=== PATIENT | male | born 1945 ===

== ENCOUNTER 2018-12-22 16:04 | Inpatient (IN) | payer MEDICARE, BC ==
[~2018-12-22] VITALS: Ht 172.7 cm; Wt 131.0 kg
[2018-12-22 16:55] VITALS: BP 128/81
[2018-12-22] MEDS ORDERED: ENOX100S5 SQ (17:48)
[2018-12-22] MEDS ORDERED: ATOR20TA37 PO (17:48)
[2018-12-22] MEDS ORDERED: TAMS-11 PO (17:48)
[2018-12-22] MEDS ORDERED: FURO40SO5 IV (17:48)
[2018-12-22] MEDS ORDERED: ASPI81TA45 PO (17:48)
[2018-12-22] MEDS ORDERED: GLYB5TAB3 PO (17:48)
[2018-12-22] MEDS ORDERED: SPIR25TA PO (17:48)
[2018-12-22] MEDS ORDERED: LISI5TAB7 PO (17:48)
[2018-12-22] MEDS ORDERED: METF1000 PO (17:50)
[2018-12-22] MEDS: CARVEDILOL 3.125 MG TABLET PO SCH (18:06)
[2018-12-22] MEDS: FUROSEMIDE 20 MG/2 ML IV SCH (18:06)
[2018-12-22 20:10] LABS: TROPONIN I 0.046 ng/mL (0.000-0.045)
[2018-12-22] MEDS ORDERED: HEPARIN 5,000 UNITS/ML, 1ML IV ONE (21:00)
[2018-12-22] MEDS: HEPARIN 25,000 UNITS/500ML PMX 500 ML IV PRN (21:26)
[2018-12-22] MEDS: ATORVASTATIN 40 MG TABLET PO SCH (21:28)
[2018-12-22] MEDS: INSULIN LISPRO 100 UNITS/ML, PEN SQ-INSULIN SCH (21:29)
[2018-12-23 01:39] LABS: TROPONIN I 0.044 ng/mL (0.000-0.045)
[2018-12-23 02:00] VITALS: BP 125/84
[2018-12-23 03:37] LABS: BASOPHILS # (AUTO) 0.04 x10^3/uL (0-0.1); BASOPHILS % (AUTO) 1 % (0-1); EOSINOPHILS % (AUTO) 2 % (1-7); LYMPHOCYTES # (AUTO) 0.65 x10^3/uL (1-3.4); LYMPHOCYTES % (AUTO) 10 % (22-44); MD NO; MEAN CORPUSCULAR HEMOGLOBIN 29.9 pg (27.5-34.5); MEAN CORPUSCULAR VOLUME 93.4 fL (81-97); MEAN PLATELET VOLUME 8.4 fL (7.4-10.4); MONOCYTES # (AUTO) 0.74 x10^3/uL (0.2-0.8); MONOCYTES % (AUTO) 12 % (2-9); NEUTROPHILS % (AUTO) 75 % (42-75); PLATELET COUNT 161 x10^3/uL (130-400); RED BLOOD COUNT 4.91 x10^6/uL (4.38-5.82); RED CELL DISTRIBUTION WIDTH 15.2 % (9.4-14.8)
[2018-12-23 03:46] LABS: ALANINE AMINOTRANSFERASE 32 U/L (12-78); ANION GAP 5 mmol/L (5-15); CALCIUM 8.3 mg/dL (8.5-10.1); CHLORIDE 99 mmol/L (98-107); CREATININE 1.13 mg/dL (0.7-1.3)
[2018-12-23 03:48] LABS: ALKALINE PHOSPHATASE 102 U/L (45-117); BILIRUBIN,TOTAL 0.9 mg/dL (0.2-1.0); TOTAL PROTEIN 6.3 g/dL (6.4-8.2)
[2018-12-23] MEDS: CARVEDILOL 3.125 MG TABLET PO SCH ×2 (06:22→17:58)
[2018-12-23] MEDS: ASPIRIN 81 MG TABLET EC PO SCH (06:22)
[2018-12-23 06:23] VITALS: BP 119/90
[2018-12-23] MEDS: INSULIN LISPRO 100 UNITS/ML, PEN SQ-INSULIN SCH ×4 (07:00→21:09)
[2018-12-23 07:45] LABS: TROPONIN I 0.021 ng/mL (0.000-0.045)
[2018-12-23] MEDS: FUROSEMIDE 20 MG/2 ML IV SCH ×2 (07:59→16:55)
[2018-12-23] MEDS: POTASSIUM CHLORIDE 20 MEQ TAB.ER.PRT PO SCH ×2 (07:59→16:55)
[2018-12-23] MEDS: LISINOPRIL 5 MG TABLET PO SCH (07:59)
[2018-12-23 08:45] VITALS: BP 111/70
[2018-12-23] MEDS: HEPARIN 5,000 UNITS/ML, 1ML IV PRN ×2 (10:41→23:48)
[2018-12-23 12:14] VITALS: BP 117/77
[2018-12-23] MEDS ORDERED: VERAPAMIL 2.5 MG/ML, 2ML ONE (14:34)
[2018-12-23] MEDS ORDERED: BIVALIRUDIN 250 MG ONE (14:34)
[2018-12-23] MEDS ORDERED: MIDAZOLAM 1 MG/ML, 5ML ONE (14:34)
[2018-12-23] MEDS ORDERED: FENTANYL PF 100 MCG/2ML ONE (14:34)
[2018-12-23] MEDS ORDERED: TICAGRELOR 90 MG TABLET ONE (14:34)
[2018-12-23] MEDS ORDERED: LIDOCAINE-MPF 1%, 5ML ONE (14:35)
[2018-12-23] MEDS ORDERED: LIDOCAINE 2%, 20ML ONE (14:57)
[2018-12-23] MEDS ORDERED: HEPARIN 1,000 UNITS/ML, 10ML ONE (15:21)
[2018-12-23 19:25] VITALS: BP 135/94
[2018-12-23] MEDS: ATORVASTATIN 40 MG TABLET PO SCH (21:08)
[2018-12-23] MEDS: HEPARIN 25,000 UNITS/500ML PMX 500 ML IV PRN (23:52)
[2018-12-24 01:44] VITALS: BP 122/81
[2018-12-24] MEDS: ASPIRIN 81 MG TABLET EC PO SCH (06:01)
[2018-12-24] MEDS: CARVEDILOL 3.125 MG TABLET PO SCH ×2 (06:04→18:29)
[2018-12-24 06:24] VITALS: BP 116/80
[2018-12-24 06:27] LABS: ANION GAP 6 mmol/L (5-15); CALCIUM 8.1 mg/dL (8.5-10.1); CHLORIDE 100 mmol/L (98-107); CREATININE 1.07 mg/dL (0.7-1.3)
[2018-12-24] MEDS: HEPARIN 5,000 UNITS/ML, 1ML IV PRN (06:45)
[2018-12-24] MEDS: INSULIN LISPRO 100 UNITS/ML, PEN SQ-INSULIN SCH ×4 (07:00→20:41)
[2018-12-24] MEDS: FUROSEMIDE 20 MG/2 ML IV SCH ×2 (08:02→17:13)
[2018-12-24] MEDS: LISINOPRIL 5 MG TABLET PO SCH (08:02)
[2018-12-24] MEDS: APIXABAN 5 MG TABLET PO SCH ×2 (11:27→20:40)
[2018-12-24] MEDS: SPIRONOLACTONE 25 MG TABLET PO SCH (11:27)
[2018-12-24 12:00] VITALS: BP 114/75
[2018-12-24 18:40] VITALS: BP 116/80
[2018-12-24] MEDS: ATORVASTATIN 40 MG TABLET PO SCH (20:40)
[2018-12-24] MEDS: MONTELUKAST 10 MG TABLET PO SCH (20:40)
[2018-12-25 01:27] VITALS: BP 120/81
[2018-12-25 05:00] LABS: BASOPHILS % (AUTO) 0 % (0-1); EOSINOPHILS # (AUTO) 0.07 x10^3/uL (0-0.4); EOSINOPHILS % (AUTO) 1 % (1-7); LYMPHOCYTES % (AUTO) 11 % (22-44); MD NO; MEAN CORPUSCULAR HEMOGLOBIN 29.8 pg (27.5-34.5); MEAN CORPUSCULAR VOLUME 93.1 fL (81-97); MEAN PLATELET VOLUME 8.9 fL (7.4-10.4); MONOCYTES # (AUTO) 0.82 x10^3/uL (0.2-0.8); MONOCYTES % (AUTO) 10 % (2-9); NEUTROPHILS # (AUTO) 6.82 x10^3/uL (1.8-6.8); NEUTROPHILS % (AUTO) 79 % (42-75); PLATELET COUNT 174 x10^3/uL (130-400); RED BLOOD COUNT 5.13 x10^6/uL (4.38-5.82); RED CELL DISTRIBUTION WIDTH 15.6 % (9.4-14.8)
[2018-12-25 05:06] LABS: ALBUMIN 3.1 g/dL (3.4-5.0); ANION GAP 5 mmol/L (5-15); CALCIUM 8.1 mg/dL (8.5-10.1); CHLORIDE 101 mmol/L (98-107)
[2018-12-25 05:08] LABS: ALANINE AMINOTRANSFERASE 39 U/L (12-78); ALKALINE PHOSPHATASE 113 U/L (45-117); BILIRUBIN,TOTAL 0.7 mg/dL (0.2-1.0); CREATININE 1.17 mg/dL (0.7-1.3); TOTAL PROTEIN 6.7 g/dL (6.4-8.2)
[2018-12-25 05:19] VITALS: BP 124/84
[2018-12-25] MEDS: CARVEDILOL 3.125 MG TABLET PO SCH ×2 (05:20→17:04)
[2018-12-25] MEDS: ASPIRIN 81 MG TABLET EC PO SCH (05:20)
[2018-12-25 06:44] VITALS: BP 97/68
[2018-12-25 08:22] VITALS: BP 126/76
[2018-12-25] MEDS: APIXABAN 5 MG TABLET PO SCH ×2 (08:23→20:42)
[2018-12-25] MEDS: SPIRONOLACTONE 25 MG TABLET PO SCH (08:23)
[2018-12-25] MEDS: FUROSEMIDE 20 MG/2 ML IV SCH (08:23)
[2018-12-25] MEDS: LISINOPRIL 5 MG TABLET PO SCH (08:23)
[2018-12-25] MEDS: INSULIN LISPRO 100 UNITS/ML, PEN SQ-INSULIN SCH ×4 (08:26→20:49)
[2018-12-25 12:25] VITALS: BP_SYST 102; BP_SYST 98; BP_DIAS 68
[2018-12-25 19:32] VITALS: BP 121/79
[2018-12-25] MEDS: MONTELUKAST 10 MG TABLET PO SCH (20:42)
[2018-12-25] MEDS: ATORVASTATIN 40 MG TABLET PO SCH (20:42)
[2018-12-26 01:27] VITALS: BP 120/80
[2018-12-26 05:45] LABS: BASOPHILS # (AUTO) 0.05 x10^3/uL (0-0.1); BASOPHILS % (AUTO) 1 % (0-1); EOSINOPHILS # (AUTO) 0.13 x10^3/uL (0-0.4); EOSINOPHILS % (AUTO) 2 % (1-7); LYMPHOCYTES % (AUTO) 12 % (22-44); MD NO; MEAN CORPUSCULAR HEMOGLOBIN 29.8 pg (27.5-34.5); MEAN CORPUSCULAR HGB CONC 31.9 g/dL (33.2-36.2); MEAN CORPUSCULAR VOLUME 93.5 fL (81-97); MEAN PLATELET VOLUME 8.8 fL (7.4-10.4); MONOCYTES % (AUTO) 11 % (2-9); NEUTROPHILS # (AUTO) 6.01 x10^3/uL (1.8-6.8); NEUTROPHILS % (AUTO) 74 % (42-75); PLATELET COUNT 150 x10^3/uL (130-400); RED BLOOD COUNT 4.91 x10^6/uL (4.38-5.82); RED CELL DISTRIBUTION WIDTH 15.5 % (9.4-14.8)
[2018-12-26 05:57] LABS: CHLORIDE 102 mmol/L (98-107)
[2018-12-26 06:04] VITALS: BP 118/84
[2018-12-26 06:04] LABS: ANION GAP 4 mmol/L (5-15); CALCIUM 7.8 mg/dL (8.5-10.1); CREATININE 0.94 mg/dL (0.7-1.3)
[2018-12-26] MEDS: ASPIRIN 81 MG TABLET EC PO SCH (06:05)
[2018-12-26] MEDS: CARVEDILOL 3.125 MG TABLET PO SCH ×2 (06:05→17:49)
[2018-12-26 06:31] VITALS: BP 115/77
[2018-12-26] MEDS: INSULIN LISPRO 100 UNITS/ML, PEN SQ-INSULIN SCH ×4 (07:00→20:52)
[2018-12-26] MEDS: SPIRONOLACTONE 25 MG TABLET PO SCH (09:34)
[2018-12-26] MEDS: FUROSEMIDE 40 MG TABLET PO SCH (09:34)
[2018-12-26] MEDS: LISINOPRIL 5 MG TABLET PO SCH (09:34)
[2018-12-26] MEDS: APIXABAN 5 MG TABLET PO SCH ×2 (09:34→20:43)
[2018-12-26 12:09] VITALS: BP 105/70
[2018-12-26 18:51] VITALS: BP 112/72
[2018-12-26] MEDS: MONTELUKAST 10 MG TABLET PO SCH (20:43)
[2018-12-26] MEDS: ATORVASTATIN 40 MG TABLET PO SCH (20:43)
[2018-12-27 02:21] VITALS: BP 110/68
[2018-12-27] MEDS: ASPIRIN 81 MG TABLET EC PO SCH (05:30)
[2018-12-27] MEDS: CARVEDILOL 3.125 MG TABLET PO SCH ×2 (05:31→18:52)
[2018-12-27 05:37] LABS: BASOPHILS # (AUTO) 0.04 x10^3/uL (0-0.1); BASOPHILS % (AUTO) 1 % (0-1); EOSINOPHILS # (AUTO) 0.21 x10^3/uL (0-0.4); EOSINOPHILS % (AUTO) 3 % (1-7); LYMPHOCYTES # (AUTO) 1.34 x10^3/uL (1-3.4); LYMPHOCYTES % (AUTO) 16 % (22-44); MD NO; MEAN CORPUSCULAR HEMOGLOBIN 29.8 pg (27.5-34.5); MEAN CORPUSCULAR HGB CONC 31.9 g/dL (33.2-36.2); MEAN CORPUSCULAR VOLUME 93.3 fL (81-97); MONOCYTES # (AUTO) 0.88 x10^3/uL (0.2-0.8); MONOCYTES % (AUTO) 10 % (2-9); NEUTROPHILS # (AUTO) 6.17 x10^3/uL (1.8-6.8); NEUTROPHILS % (AUTO) 71 % (42-75); PLATELET COUNT 165 x10^3/uL (130-400); RED BLOOD COUNT 5.01 x10^6/uL (4.38-5.82)
[2018-12-27 05:47] LABS: ANION GAP 5 mmol/L (5-15); CALCIUM 7.9 mg/dL (8.5-10.1); CHLORIDE 102 mmol/L (98-107); CREATININE 0.96 mg/dL (0.7-1.3)
[2018-12-27] MEDS: INSULIN LISPRO 100 UNITS/ML, PEN SQ-INSULIN SCH ×3 (07:00→17:21)
[2018-12-27 09:39] VITALS: BP 110/70
[2018-12-27] MEDS: LISINOPRIL 5 MG TABLET PO SCH (09:41)
[2018-12-27] MEDS: FUROSEMIDE 40 MG TABLET PO SCH (09:41)
[2018-12-27] MEDS: SPIRONOLACTONE 25 MG TABLET PO SCH (09:41)
[2018-12-27] MEDS: APIXABAN 5 MG TABLET PO SCH ×2 (09:41→19:05)
[2018-12-27] MEDS ORDERED: ATOR40TA78 PO (16:32)
[2018-12-27] MEDS ORDERED: LISI5TAB7 PO (16:32)
[2018-12-27] MEDS ORDERED: MONT10TA9 PO (16:32)
[2018-12-27] MEDS ORDERED: FURO40TA6 PO (16:32)
[2018-12-27] MEDS ORDERED: APIX5TAB PO (16:32)
[2018-12-27] MEDS ORDERED: CARV3.1212 PO (16:32)
[2018-12-27 17:22] VITALS: BP 127/85
[2018-12-27] MEDS: ATORVASTATIN 40 MG TABLET PO SCH (19:05)
[2018-12-27] MEDS: MONTELUKAST 10 MG TABLET PO SCH (19:05)
== END 2018-12-27 23:51 | disposition home or self-care (01) | DRG 286 ==
LOC: 5SO 16:44
PROVIDERS: ADMIT Internal Medicine Cardiovascular Disease; ATTEND Internal Medicine
PROC: 4A023N7 Measurement of Cardiac Sampling and Pressure, Left Heart, Percutaneous Approach (ICD-10-PCS; principal; 2018-12-23)
PROC: 4A033BC Measurement of Arterial Pressure, Coronary, Percutaneous Approach (ICD-10-PCS; 2018-12-23)
PROC: B2111ZZ Fluoroscopy of Multiple Coronary Arteries using Low Osmolar Contrast (ICD-10-PCS; 2018-12-23)
PROC: B2151ZZ Fluoroscopy of Left Heart using Low Osmolar Contrast (ICD-10-PCS; 2018-12-23)
DX: I11.0 Hypertensive heart disease with heart failure (principal); I50.21 Acute systolic (congestive) heart failure; J96.21 Acute and chronic respiratory failure with hypoxia; I26.93 Single subsegmental thrombotic pulmonary embolism without acute cor pulmonale; D68.69 Other thrombophilia; I42.9 Cardiomyopathy, unspecified; E11.9 Type 2 diabetes mellitus without complications; E78.5 Hyperlipidemia, unspecified; E87.6 Hypokalemia; I25.119 Atherosclerotic heart disease of native coronary artery with unspecified angina pectoris; I25.5 Ischemic cardiomyopathy; I25.82 Chronic total occlusion of coronary artery; J45.909 Unspecified asthma, uncomplicated; L30.4 Erythema intertrigo; N40.0 Benign prostatic hyperplasia without lower urinary tract symptoms; N44.8 Other noninflammatory disorders of the testis; N50.89 Other specified disorders of the male genital organs; S91.302A Unspecified open wound, left foot, initial encounter; E66.9 Obesity, unspecified; R91.8 Other nonspecific abnormal finding of lung field; S91.301A Unspecified open wound, right foot, initial encounter; Z99.81 Dependence on supplemental oxygen; Z87.891 Personal history of nicotine dependence; Z82.49 Family history of ischemic heart disease and other diseases of the circulatory system; Z82.0 Family history of epilepsy and other diseases of the nervous system; Z79.01 Long term (current) use of anticoagulants
CPT/HCPCS: 36415; 80048; 80053; 82962; 83735; 84100; 84484; 85025; 85520; 93458; 93922; 93970; 99156; C1760; C1769; C1894; G0378; J0583; J1644; J2250; J3010; J1815; J1940; Q9967